=== PATIENT | female | born 1975 ===

== ENCOUNTER → 2018-09-20 | Outpatient (CLI) | payer MEDICARE, MEDICAID ==
[~2018-09-20] MED LIST: B&C/1TAB2 PO; CA C1TAB62 PO; CHLO50TA PO; CHOL500015 PO; Cranberry PO; INUL1TAB4 PO; JOINT SOOTHER PO; MELA5TAB19 PO; MONT10TA6 PO; MYCO180T10 PO; OMEG-14 PO; PRED5TAB PO; RANI150T4 PO; TACR1CAP4 PO; TURM1POW PO; [UNRECOGNIZED DRUG - OTHER] PO; [UNRECOGNIZED DRUG - OTHER] PO
[2018-09-20 15:01] LABS: BASOPHILS # (AUTO) 0.02 x10^3/uL (0-0.1); BASOPHILS % (AUTO) 0 % (0-1); EOSINOPHILS # (AUTO) 0.23 x10^3/uL (0-0.4); EOSINOPHILS % (AUTO) 2 % (1-7); LYMPHOCYTES # (AUTO) 0.91 x10^3/uL (1-3.4); LYMPHOCYTES % (AUTO) 10 % (22-44); MD NO; MEAN CORPUSCULAR HEMOGLOBIN 27.6 pg (27.0-34.8); MEAN CORPUSCULAR VOLUME 83.6 fL (80-100); MEAN PLATELET VOLUME 9.3 fL (7.4-10.4); MONOCYTES # (AUTO) 0.39 x10^3/uL (0.2-0.8); MONOCYTES % (AUTO) 4 % (2-9); NEUTROPHILS # (AUTO) 7.88 x10^3/uL (1.8-6.8); NEUTROPHILS % (AUTO) 84 % (42-75); PLATELET COUNT 212 x10^3/uL (130-400); RED BLOOD COUNT 4.14 x10^6/uL (3.82-5.3); RED CELL DISTRIBUTION WIDTH 15.3 % (9.6-15.2)
[2018-09-20 15:10] LABS: ANION GAP 7 mmol/L (5-15); CALCIUM 9.6 mg/dL (8.5-10.1); CHLORIDE 116 mmol/L (98-107); CREATININE 1.82 mg/dL (0.55-1.02)
[2018-09-20 15:24] LABS: MICROSCOPIC NOT IND
[2018-09-20 15:31] LABS: CULTURE INDICATED? NO
== END | disposition home or self-care (01) ==
LOC: STAR 13:54
PROVIDERS: ATTEND Obstetrics & Gynecology
DX: Z01.818 Encounter for other preprocedural examination (principal); Z91.013 Allergy to seafood; Z88.8 Allergy status to other drugs, medicaments and biological substances
CPT/HCPCS: 36415; 80048; 81003; 85025

== ENCOUNTER 2018-09-25 07:15 | Observation (INO) | payer MEDICARE, MEDICAID ==
[~2018-09-25] VITALS: Ht 168.9 cm; Wt 127.0 kg
[~2018-09-25 07:15] MED LIST changes: +BUPIVACAINE/PF 0.25% ONE; +EPINEPHRINE 1 MG/ML, 1ML ONE; +SILVER NITRATE STICK TP ONE
[2018-09-25] MEDS ORDERED: SUGAMMADEX 200 MG/2 ML IVPush ONE (07:27)
[2018-09-25] MEDS ORDERED: HYDROCORTISONE 100 MG INJ. ONE (07:27)
[2018-09-25 07:28] VITALS: BP 153/88
[2018-09-25] MEDS ORDERED: ACETAMINOPHEN 500 MG TABLET PO ONE (07:30)
[2018-09-25] MEDS ORDERED: OXYcodone 5 MG/5 ML ORAL.SOL UDC PO PRN (07:30)
[2018-09-25] MEDS ORDERED: DIPHENHYDRAMINE 50 MG/ML, 1ML IVPush PRN (07:30)
[2018-09-25] MEDS ORDERED: MEPERIDINE/PF 25MG/0.5ML IVPush PRN (07:30)
[2018-09-25] MEDS ORDERED: PROCHLORPERAZINE 5 MG/ML, 2ML IV PRN (07:30)
[2018-09-25] MEDS ORDERED: METOPROLOL 1 MG/ML, 5ML IV PRN (07:30)
[2018-09-25] MEDS ORDERED: PROMETHAZINE 25 MG/ML, 1ML IV PRN (07:30)
[2018-09-25] MEDS ORDERED: HALOPERIDOL 5 MG/ML IV PRN (07:30)
[2018-09-25] MEDS ORDERED: hydrALAzine 20 MG/ML, 1ML IV PRN (07:30)
[2018-09-25] MEDS ORDERED: LABETALOL 5MG/ML, 20ML IV PRN (07:30)
[2018-09-25] MEDS ORDERED: HYDROmorphone 2 MG/ML, 1ML IVPush PRN (07:30)
[2018-09-25 07:55] LABS: HCG UR SG 1.018 (1.003-1.030)
[2018-09-25] MEDS ORDERED: SUCCINYLCHOLINE 20 MG/ML, 10ML ONE (07:59)
[2018-09-25] MEDS ORDERED: PROPOFOL 10 MG/ML, 20ML ONE (07:59)
[2018-09-25] MEDS ORDERED: ROCURONIUM 10 MG/ML,10ML ONE (07:59)
[2018-09-25] MEDS ORDERED: CEFAZOLIN 1,000 MG ONE (07:59)
[2018-09-25] MEDS ORDERED: DEXAMETHASONE 4 MG/ML, 5ML ONE (07:59)
[2018-09-25] MEDS ORDERED: ONDANSETRON 2MG/ML, 2ML ONE (07:59)
[2018-09-25] MEDS ORDERED: FENTANYL PF 100 MCG/2ML ONE ×3 (09:35→10:14)
[2018-09-25] MEDS ORDERED: PROMETHAZINE 25 MG/ML, 1ML ONE (10:14)
[2018-09-25] MEDS: FENTANYL PF 100 MCG/2ML IV PRN ×3 (10:20→10:35)
[2018-09-25] MEDS ORDERED: OXYcodone 5 MG/5 ML ORAL.SOL UDC ONE (10:47)
[2018-09-25 12:48] VITALS: BP 111/53
[2018-09-25] MEDS: ONDANSETRON 2MG/ML, 2ML IVPush PRN ×2 (13:50→21:43)
[2018-09-25] MEDS ORDERED: MELATONIN 5 MG TABLET PO PRN (15:30)
[2018-09-25 18:56] VITALS: BP 154/79
[2018-09-25] MEDS: MYCOPHENOLATE MOFETIL 200 MG/ML SUSP PO SCH (21:00)
[2018-09-25] MEDS: OMEGA-3/FISH OIL CAPSULE PO SCH (21:00)
[2018-09-25] MEDS: TACROLIMUS 1 MG CAPSULE PO SCH (21:00)
[2018-09-26 01:00] VITALS: BP 128/46
[2018-09-26 04:30] VITALS: BP 124/65
[2018-09-26 07:03] VITALS: BP 115/50
[2018-09-26] MEDS: OMEGA-3/FISH OIL CAPSULE PO SCH (08:51)
[2018-09-26] MEDS: MYCOPHENOLATE MOFETIL 200 MG/ML SUSP PO SCH (08:51)
[2018-09-26] MEDS: TACROLIMUS 1 MG CAPSULE PO SCH (08:52)
[2018-09-26] MEDS ORDERED: CHLORTHALIDONE 25 MG TABLET PO SCH (09:00)
[2018-09-26] MEDS ORDERED: FAMOTIDINE 20 MG TABLET PO SCH (09:00)
[2018-09-26] MEDS ORDERED: MULTIVITS,STRESS FORMULA 1 TABLET PO SCH (09:00)
[2018-09-26] MEDS ORDERED: RANITIDINE 15 MG/ML ORAL SOL PO SCH (09:00)
[2018-09-26] MEDS ORDERED: CHOLECALCIFEROL 5,000u TAB PO SCH (09:00)
[2018-09-26] MEDS ORDERED: MONTELUKAST 10 MG TABLET PO SCH (09:00)
[2018-09-26] MEDS ORDERED: OXYC-302 PO (12:20)
[2018-09-26] MEDS ORDERED: ACET325T14 PO (12:22)
[2018-09-27] MEDS ORDERED: CINACALCET 30 MG TABLET PO SCH (09:00)
== END 2018-09-26 12:54 | disposition home or self-care (01) ==
LOC: OUT 07:15 → 4NOR 11:27 → OUT 12:10 → 4NOR 16:55 → DCLOUNGE 09-26 12:35
PROVIDERS: ADMIT Obstetrics & Gynecology; ATTEND Obstetrics & Gynecology
DX: Z30.2 Encounter for sterilization (principal); G47.33 Obstructive sleep apnea (adult) (pediatric); E66.01 Morbid (severe) obesity due to excess calories
CPT/HCPCS: 58661; 81025; 88302; 96374; 96376; G0378; J0171; J0330; J0690; J1100; J1720; J2405; J2550; J2704; J3010; J3490